=== PATIENT | female | born 1945 | race Caucasian/White ===

== ENCOUNTER 2016-10-18 18:40 | Inpatient (IN) | payer MEDICARE ==
[~2016-10-18] VITALS: Ht 175.3 cm; Wt 77.5 kg
[2016-10-18 19:34] LABS: ASPARTATE AMINO TRANSFERASE 26 U/L (15-37); BLOOD UREA NITROGEN 17 mg/dL (7-18)
[2016-10-18 20:00] LABS: PATH.CAST-FLAG NOT PRESENT; SPERM-FLAG NOT PRESENT; SRC-FLAG NOT PRESENT; XTAL-FLAG NOT PRESENT; YLC-FLAG NOT PRESENT
[2016-10-18] MEDS ORDERED: OMNIPAQUE 350 MG/ML, 100ML BOTTLE ONE (20:46)
[2016-10-18] MEDS ORDERED: ONDANSETRON 2MG/ML, 2ML ONE (21:22)
[2016-10-18] MEDS ORDERED: MORPHINE SULFATE 4 MG/ML, 1ML ONE (21:22)
[2016-10-18] MEDS ORDERED: ONDANSETRON 2MG/ML, 2ML IVPush ONE (21:30)
[2016-10-18] MEDS ORDERED: MORPHINE SULFATE 4 MG/ML, 1ML IVPush PRN (21:30)
[2016-10-18] MEDS ORDERED: morphine SULFATE 10 MG/ML, 1ML IVPush PRN (23:00)
[2016-10-18] MEDS ORDERED: ONDANSETRON 2MG/ML, 2ML IVPush PRN (23:00)
[2016-10-18] MEDS: BISACODYL 10 MG SUPP PR SCH (23:00)
[2016-10-18] MEDS ORDERED: ACETAMINOPHEN 325 MG TABLET PO PRN (23:00)
[2016-10-18] MEDS: LOVASTATIN 40 MG TABLET PO SCH (23:00)
[2016-10-18] MEDS ORDERED: FLUO40CA2 PO (23:14)
[2016-10-18] MEDS ORDERED: CARV3.122 PO (23:14)
[2016-10-18] MEDS ORDERED: NIAC500T85 PO (23:14)
[2016-10-18] MEDS ORDERED: PROM25SU34 RC (23:14)
[2016-10-18] MEDS ORDERED: PANT40TA5 PO (23:14)
[2016-10-18] MEDS ORDERED: TELM40TA PO (23:14)
[2016-10-18] MEDS ORDERED: ONDA4TAB10 PO (23:14)
[2016-10-18] MEDS ORDERED: LOVA40TA2 PO (23:14)
[2016-10-18] MEDS ORDERED: ALEN70TA5 PO (23:14)
[2016-10-18] MEDS ORDERED: FOLIC ACID (23:15)
[2016-10-18] MEDS ORDERED: VITAMIN D (23:15)
[2016-10-18] MEDS ORDERED: POTASSIUM (23:15)
[2016-10-18] MEDS ORDERED: MULT-658 PO (23:15)
[2016-10-18] MEDS ORDERED: CALCIUM (23:15)
[2016-10-19] MEDS ORDERED: ENALAPRILAT 1.25 MG/ML, 2ML IV PRN
[2016-10-19] MEDS: HEPARIN 5,000 UNITS/ML, 1ML SQ SCH ×3 (00:22→17:33)
[2016-10-19 00:29] VITALS: BP 170/80
[2016-10-19] MEDS: SODIUM CHLORIDE 0.9% 1,000 ML IV SCH ×3 (01:03→17:34)
[2016-10-19 03:10] VITALS: BP 130/73
[2016-10-19 05:18] LABS: BLOOD UREA NITROGEN 16 mg/dL (7-18)
[2016-10-19 05:30] LABS: ASPARTATE AMINO TRANSFERASE 22 U/L (15-37)
[2016-10-19 08:05] VITALS: BP 122/65
[2016-10-19] MEDS: VALSARTAN 160 MG TABLET PO SCH (09:00)
[2016-10-19] MEDS: BISACODYL 10 MG SUPP PR SCH (09:00)
[2016-10-19] MEDS ORDERED: BISACODYL 10 MG SUPP PR PRN (10:00)
[2016-10-19 14:10] VITALS: BP 120/75
[2016-10-19 18:54] VITALS: BP 126/67
[2016-10-19] MEDS ORDERED: IBUPROFEN 200 MG TABLET PO PRN (22:00)
[2016-10-19] MEDS: LOVASTATIN 40 MG TABLET PO SCH (22:13)
[2016-10-20] MEDS: HEPARIN 5,000 UNITS/ML, 1ML SQ SCH ×2 (02:29→09:53)
[2016-10-20] MEDS: SODIUM CHLORIDE 0.9% 1,000 ML IV SCH (02:29)
[2016-10-20 02:31] VITALS: BP 126/78
[2016-10-20 05:54] LABS: BLOOD UREA NITROGEN 9 mg/dL (7-18)
[2016-10-20 07:01] VITALS: BP 150/86
[2016-10-20] MEDS: VALSARTAN 160 MG TABLET PO SCH (09:00)
== END 2016-10-20 12:03 | disposition home or self-care (01) | DRG 390 ==
LOC: ED 20:51 → EDIP 22:34 → 4NOR 23:30
PROVIDERS: ADMIT Internal Medicine; ATTEND Internal Medicine
DX: K56.60 Unspecified intestinal obstruction (principal); I10 Essential (primary) hypertension; E78.00 Pure hypercholesterolemia, unspecified; Z66 Do not resuscitate; E78.5 Hyperlipidemia, unspecified; M19.90 Unspecified osteoarthritis, unspecified site; M51.36 Other intervertebral disc degeneration, lumbar region; N28.1 Cyst of kidney, acquired; R19.7 Diarrhea, unspecified; R51 Headache; Z83.3 Family history of diabetes mellitus; Z82.49 Family history of ischemic heart disease and other diseases of the circulatory system
CPT/HCPCS: 36415; 74000; 74177; 80048; 80053; 81001; 83690; 85025; 87086; 87324; 89055; 93005; 96374; 96375; J1644; J2405; Q9967; J7030

== ENCOUNTER → 2017-08-30 | Outpatient (CLI) | payer MEDICARE ==
[~2017-08-30] MED LIST: ACID1TAB7 PO; ALEN70TA5 PO; AMOX1TAB64 PO; CALCIUM; CARV3.122 PO; FLUO40CA2 PO; FOLIC ACID; LOVA40TA2 PO; MULT-658 PO; NIAC500T85 PO; ONDA4TAB10 PO; PANT40TA5 PO; POTASSIUM; PROM25SU34 RC; TELM40TA PO; VITAMIN D
== END | disposition home or self-care (01) ==
LOC: CFH 09:43
PROVIDERS: ATTEND Internal Medicine
DX: Z12.31 Encounter for screening mammogram for malignant neoplasm of breast (principal); D24.1 Benign neoplasm of right breast
CPT/HCPCS: 77063; 77067

== ENCOUNTER → 2017-10-02 | Outpatient (CLI) | payer MEDICARE | END | disposition home or self-care (01) | LOC: STAR 09:20 | PROVIDERS: ATTEND Physician Assistant Medical | DX: I10 Essential (primary) hypertension (principal) | CPT/HCPCS: 93005 ==

== ENCOUNTER → 2017-12-09 | Outpatient (CLI) | payer MEDICARE | END | disposition home or self-care (01) | LOC: CFH 10:29 | PROVIDERS: ATTEND Internal Medicine | DX: M81.0 Age-related osteoporosis without current pathological fracture (principal) | CPT/HCPCS: 77080 ==

== ENCOUNTER 2019-09-20 20:55 | Emergency (ER) | payer MEDICARE ==
[~2019-09-20] VITALS: Ht 175.3 cm; Wt 90.6 kg
[~2019-09-20 20:55] MED LIST changes: -ALEN70TA5 PO; +ALEN70TA6 PO
--- NOTE | 2019-09-20 21:23 | NUR ---
PT TOOK CLONIDINE IN TRIAGE FROM HER OWN MEDICATION SUPPLY INSTRUCTED TO DO SO BY LARRY POLK
[2019-09-20 22:17] LABS: BASOPHILS # (AUTO) 0.09 x10^3/uL (0-0.1); BASOPHILS % (AUTO) 1 % (0-1); EOSINOPHILS # (AUTO) 0.47 x10^3/uL (0-0.4); EOSINOPHILS % (AUTO) 6 % (1-7); LYMPHOCYTES # (AUTO) 2.66 x10^3/uL (1-3.4); LYMPHOCYTES % (AUTO) 31 % (22-44); MD NO; MEAN CORPUSCULAR HGB CONC 33.8 g/dL (32.4-35.8); MEAN CORPUSCULAR VOLUME 85.8 fL (80-100); MEAN PLATELET VOLUME 6.9 fL (7.4-10.4); MONOCYTES # (AUTO) 0.67 x10^3/uL (0.2-0.8); MONOCYTES % (AUTO) 8 % (2-9); NEUTROPHILS # (AUTO) 4.65 x10^3/uL (1.8-6.8); NEUTROPHILS % (AUTO) 55 % (42-75); PLATELET COUNT 263 x10^3/uL (130-400); RED BLOOD COUNT 4.64 x10^6/uL (3.82-5.3); RED CELL DISTRIBUTION WIDTH 14.3 % (9.6-15.2)
[2019-09-20 22:27] LABS: ALBUMIN 3.2 g/dL (3.4-5.0); ANION GAP 6 mmol/L (5-15); CHLORIDE 110 mmol/L (98-107)
[2019-09-20 22:32] LABS: ALANINE AMINOTRANSFERASE 30 U/L (12-78); ALKALINE PHOSPHATASE 87 U/L (45-117); BILIRUBIN,TOTAL 0.7 mg/dL (0.2-1.0); CREATININE 1.12 mg/dL (0.55-1.02); TOTAL PROTEIN 8.4 g/dL (6.4-8.2); TROPONIN I < 0.015 ng/mL (0.000-0.045)
--- NOTE | 2019-09-20 22:52 | NUR ---
PT AMBULATORY TO ROOM FROM LOBBY
--- NOTE | 2019-09-20 22:56 | NUR ---
PT RESTING IN BED NO COMPLAINTS
[2019-09-21] MEDS ORDERED: AZITHROMYCIN 500 MG TABLET ONE (00:06)
[2019-09-21 00:09] VITALS: BP 154/74
--- NOTE | 2019-09-21 00:09 | NUR ---
PT MEDICATED PER EMAR. 5 RIGHTS ADDRESSED
[2019-09-21] MEDS ORDERED: AZITHROMYCIN 500 MG TABLET PO ONE (00:30)
--- NOTE | 2019-09-21 00:41 | NUR ---
Patient/Caregiver given discharge instructions and they have confirmed that they understand the instructions. Patient ambulatory with steady gait.
== END 2019-09-21 00:43 | disposition home or self-care (01) ==
LOC: ED 09-21 00:01
DX: J15.9 Unspecified bacterial pneumonia (principal); R05 Cough; R07.9 Chest pain, unspecified; R94.31 Abnormal electrocardiogram [ECG] [EKG]; I10 Essential (primary) hypertension; E78.00 Pure hypercholesterolemia, unspecified
CPT/HCPCS: 36415; 71045; 80053; 83880; 84484; 85025; 93005; 99285

== ENCOUNTER 2019-09-28 10:22 | Emergency (ER) | payer MEDICARE ==
[~2019-09-28] VITALS: Ht 175.3 cm; Wt 90.5 kg
[2019-09-28] MEDS ORDERED: CARV6.252 PO (10:57)
[2019-09-28] MEDS ORDERED: LOSA100T14 PO (10:57)
[2019-09-28] MEDS ORDERED: AMLO5TAB10 PO (10:57)
[2019-09-28] MEDS ORDERED: ATOR20TA86 PO (10:57)
[2019-09-28] MEDS ORDERED: AZIT250T89 PO (10:57)
--- NOTE | 2019-09-28 11:03 | NUR ---
PT A&XO4, RESP EVEN & UNLABORED, SPEECH CLEAR, SKIN WNL. PT STATES SHE'S HERE FOR ELEVATED BP. WAS GOING TO START NUTRI-SYSTEM AND DECIDED TO START MONITORING HER BP. TAKES BP TID. STATES TID BECAUSE SHE'S SCARED OF HAVING A STROKE. NO PERSONAL OR FAMILY HX OF STROKE. HAS PCP APPOINTMENT THIS COMING SATURDAY
[2019-09-28 11:14] VITALS: BP 113/66
[2019-09-28] MEDS ORDERED: LIDOCAINE-MPF 1%, 5ML ONE (11:14)
[2019-09-28] MEDS ORDERED: PROBIOTIC (11:21)
[2019-09-28] MEDS ORDERED: NORT10CA PO (11:21)
[2019-09-28] MEDS ORDERED: MULTIVITAMIN (11:21)
[2019-09-28] MEDS ORDERED: CINNAMON (11:21)
[2019-09-28] MEDS ORDERED: ASPI-650 PO (11:21)
[2019-09-28] MEDS ORDERED: VITAMIN B-12 (11:21)
[2019-09-28] MEDS ORDERED: CLONIDINE (11:22)
== END 2019-09-28 12:23 | disposition home or self-care (01) ==
LOC: ED 11:57
DX: I10 Essential (primary) hypertension (principal); E78.00 Pure hypercholesterolemia, unspecified
CPT/HCPCS: 99283

== ENCOUNTER → 2019-10-02 | Outpatient (CLI) | payer MEDICARE ==
[~2019-10-02] MED LIST changes: +AMLO5TAB10 PO; +ASPI-650 PO; +ATOR20TA86 PO; +AZIT250T89 PO; +CARV6.252 PO; +CINNAMON; +CLONIDINE; +LOSA100T14 PO; +MULTIVITAMIN; +NORT10CA PO; +PROBIOTIC; +VITAMIN B-12
== END | disposition home or self-care (01) ==
LOC: ROC 10:05
PROVIDERS: ATTEND Internal Medicine
DX: R91.8 Other nonspecific abnormal finding of lung field (principal); J98.4 Other disorders of lung
CPT/HCPCS: 71046

== ENCOUNTER 2019-12-14 11:37 | Outpatient (CLI) | payer MEDICARE ==
[~2019-12-14 11:37] MED LIST changes: -PANT40TA5 PO; +PANT40TA6 PO
== END 2019-12-14 23:59 | disposition home or self-care (01) ==
LOC: CFH 11:37
PROVIDERS: ATTEND Internal Medicine
DX: M81.0 Age-related osteoporosis without current pathological fracture (principal)
CPT/HCPCS: 77080

== ENCOUNTER 2020-04-04 16:32 | Emergency (ER) | payer MEDICARE ==
[~2020-04-04] VITALS: Ht 175.3 cm; Wt 91.3 kg
[~2020-04-04 16:32] MED LIST changes: -ALEN70TA6 PO; +ALEN70TA77 PO; +AMLO-210 PO; -AMLO5TAB10 PO
[2020-04-04 16:35] VITALS: BP 125/58
[2020-04-04 17:27] LABS: BASOPHILS % (AUTO) 1 % (0-1); EOSINOPHILS % (AUTO) 4 % (1-7); LYMPHOCYTES % (AUTO) 20 % (22-44); MEAN CORPUSCULAR HEMOGLOBIN 28.5 pg (27.0-34.8); MEAN CORPUSCULAR HGB CONC 33.9 g/dL (32.4-35.8); MEAN PLATELET VOLUME 7.1 fL (7.4-10.4); MONOCYTES % (AUTO) 7 % (2-9); NEUTROPHILS % (AUTO) 68 % (42-75); PLATELET COUNT 287 x10^3/uL (130-400); RED BLOOD COUNT 4.69 x10^6/uL (3.82-5.3); RED CELL DISTRIBUTION WIDTH 13.7 % (9.6-15.2)
[2020-04-04 17:33] LABS: ALBUMIN 3.6 g/dL (3.4-5.0); ANION GAP 8 mmol/L (5-15); CALCIUM 9.6 mg/dL (8.5-10.1); CHLORIDE 106 mmol/L (98-107); CREATININE 1.58 mg/dL (0.55-1.02)
[2020-04-04 17:36] LABS: MD NO
[2020-04-04] MEDS ORDERED: OMNIPAQUE 350 MG/ML, 100ML BOTTLE ONE (18:27)
--- NOTE | 2020-04-04 18:42 | NUR ---
BEDSIDE REPORT RECEIVED FROM ELIAS RN, PT CARE TRANSFERRED AT THIS TIME. NAD, RESTING ON GURNEY, APPEARS COMFORTABLE, BED IN LOWEST, CALL LIGHT ON LAP, WCTM.
--- NOTE | 2020-04-04 19:23 | NUR ---
Patient given discharge instructions and they have confirmed that they understand the instructions. Patient ambulatory with steady gait. nad, denies additional questions or needs at this time, reports she will follow up. no personal belongings left in room at time of dc.
== END 2020-04-04 19:25 | disposition home or self-care (01) ==
LOC: ED 19:19
DX: K57.31 Diverticulosis of large intestine without perforation or abscess with bleeding (principal); K92.1 Melena; I10 Essential (primary) hypertension; E78.00 Pure hypercholesterolemia, unspecified; Z87.891 Personal history of nicotine dependence
CPT/HCPCS: 36415; 74177; 80048; 82040; 85025; 99285; Q9967

== ENCOUNTER 2020-10-22 14:09 | Inpatient (IN) | payer MEDICARE ==
[~2020-10-22] VITALS: Ht 175.3 cm; Wt 89.2 kg
[~2020-10-22 14:09] MED LIST changes: +ASPI-1026 PO; -ASPI-650 PO
[2020-10-22] MEDS ORDERED: SODIUM CHLORIDE FLUSH 10ML SYR IVF ONE (14:30)
--- NOTE | 2020-10-22 14:54 | NUR ---
pt presents to ED with c/o dry cough x 2 months, weight loss 8 lbs over 2 weeks, and sob starting 3 days ago. pt denies n/v/d, denies fever, denies sore throat. pt is covid vaccinated, denies travel or sick contacts. pt is a&ox4, resps even and unlabored. nsr on secured entrance monitor with no ectopy. PIV placed, blood cx drawn x1 by RN and x 1 by lab. call light in reach. warm blanket provided. awaiting lab/xr results and dispo.
[2020-10-22 15:05] LABS: BASOPHILS % (AUTO) 1 % (0-1); EOSINOPHILS % (AUTO) 3 % (1-7); LYMPHOCYTES % (AUTO) 18 % (22-44); MEAN CORPUSCULAR HEMOGLOBIN 28.6 pg (27.0-34.8); MEAN CORPUSCULAR HGB CONC 34.1 g/dL (32.4-35.8); MONOCYTES % (AUTO) 5 % (2-9); NEUTROPHILS % (AUTO) 73 % (42-75); PLATELET COUNT 289 x10^3/uL (130-400); RED BLOOD COUNT 4.75 x10^6/uL (3.82-5.3); RED CELL DISTRIBUTION WIDTH 14.8 % (9.6-15.2)
--- NOTE | 2020-10-22 15:08 | NUR ---
RECEIVED REPORT FROM MARY KATE JOY, TRANSFER OF CARE.
--- NOTE | 2020-10-22 15:11 | NUR ---
REPORT GIVEN TO BENITA RAHMAN WHO IS ASSUMING CARE.
[2020-10-22 15:16] LABS: ALANINE AMINOTRANSFERASE 23 U/L (12-78); ALBUMIN 2.9 g/dL (3.4-5.0); ANION GAP 6 mmol/L (5-15); CALCIUM 9.4 mg/dL (8.5-10.1); CHLORIDE 110 mmol/L (98-107); CREATININE 1.29 mg/dL (0.55-1.02)
[2020-10-22 15:20] LABS: ALKALINE PHOSPHATASE 88 U/L (45-117); BILIRUBIN,TOTAL 0.6 mg/dL (0.2-1.0); TOTAL PROTEIN 8.9 g/dL (6.4-8.2); TROPONIN I < 0.015 ng/mL (0.000-0.045)
--- NOTE | 2020-10-22 15:42 | NUR ---
sp02 on room air is 89%
[2020-10-22] MEDS ORDERED: SODIUM CHLORIDE FLUSH 10ML SYR IVF PRN (16:30)
[2020-10-22] MEDS ORDERED: ONDA4TAB7 PO (16:56)
[2020-10-22] MEDS ORDERED: IRBE300T8 PO (16:56)
[2020-10-22] MEDS ORDERED: LABETALOL 5MG/ML, 20ML IVPush PRN (17:00)
[2020-10-22] MEDS ORDERED: ACETAMINOPHEN 325 MG TABLET PO PRN (17:00)
[2020-10-22] MEDS ORDERED: ONDANSETRON 2MG/ML, 2ML IVPush PRN (17:00)
[2020-10-22] MEDS ORDERED: ONDANSETRON ODT 4 MG PO PRN (17:00)
[2020-10-22] MEDS: LACTATED RINGERS 1,000 ML IV SCH (17:00)
--- NOTE | 2020-10-22 17:22 | NUR ---
Patient is resting comfortably in bed. Bed in lowest, rails engaged, call light on lap. Vital Signs within normal limits. WCTM.
--- NOTE | 2020-10-22 17:27 | NUR ---
GAVE REPORT TO FLOOR RN THAT TOOK REPORT FOR NIDHI JOY.
[2020-10-22 18:04] VITALS: BP 138/83
[2020-10-22] MEDS: ENOXAPARIN 40 MG/0.4 ML SQ SCH (18:08)
[2020-10-22] MEDS: ASPIRIN 325 MG TABLET EC PO SCH (20:22)
[2020-10-22] MEDS: NORTRIPTYLINE 10 MG CAPSULE PO SCH (20:22)
[2020-10-22] MEDS: NIACIN 500 MG TABLET.ER PO SCH (21:38)
[2020-10-23 02:33] VITALS: BP 113/67
[2020-10-23 05:33] LABS: BASOPHILS % (AUTO) 1 % (0-1); EOSINOPHILS % (AUTO) 4 % (1-7); LYMPHOCYTES % (AUTO) 26 % (22-44); MEAN CORPUSCULAR HEMOGLOBIN 28.7 pg (27.0-34.8); MEAN CORPUSCULAR HGB CONC 34.3 g/dL (32.4-35.8); MEAN PLATELET VOLUME 7.3 fL (7.4-10.4); MONOCYTES % (AUTO) 7 % (2-9); NEUTROPHILS % (AUTO) 64 % (42-75); PLATELET COUNT 233 x10^3/uL (130-400); RED BLOOD COUNT 4.33 x10^6/uL (3.82-5.3); RED CELL DISTRIBUTION WIDTH 14.5 % (9.6-15.2)
[2020-10-23 05:39] LABS: ANION GAP 4 mmol/L (5-15); CHLORIDE 111 mmol/L (98-107)
[2020-10-23 07:07] VITALS: BP 121/74
[2020-10-23] MEDS: AMLODIPINE 10 MG TAB PO SCH (09:23)
[2020-10-23] MEDS: IRBESARTAN 300 MG TABLET PO SCH (09:23)
[2020-10-23] MEDS: MULTIVITAMIN 1 TABLET PO SCH (09:23)
[2020-10-23] MEDS: FLUOXETINE HCL 20 MG CAPSULE PO SCH (09:24)
[2020-10-23] MEDS: PANTOPRAZOLE 40MG TABLET PO SCH (09:24)
[2020-10-23] MEDS: LACTATED RINGERS 1,000 ML IV SCH ×2 (09:25→20:19)
[2020-10-23] MEDS: CEFTRIAXONE 2 GM in DEXTROSE 5% 50 ML IVPB SCH (11:53)
[2020-10-23] MEDS: DOXYCYCLINE 100 MG in DEXTROSE 5% 250 ML IV SCH (13:48)
[2020-10-23 14:03] VITALS: BP 127/73
[2020-10-23] MEDS: ENOXAPARIN 40 MG/0.4 ML SQ SCH (17:24)
[2020-10-23] MEDS: ASPIRIN 325 MG TABLET EC PO SCH (20:18)
[2020-10-23] MEDS: NORTRIPTYLINE 10 MG CAPSULE PO SCH (20:18)
[2020-10-23 20:28] VITALS: BP 149/84
[2020-10-23] MEDS ORDERED: ATORVASTATIN 20 MG TABLET PO SCH (21:00)
[2020-10-23] MEDS: NIACIN 500 MG TABLET.ER PO SCH (21:21)
[2020-10-24] MEDS: DOXYCYCLINE 100 MG in DEXTROSE 5% 250 ML IV SCH ×3 (01:45→14:25)
[2020-10-24 02:05] VITALS: BP 110/70
[2020-10-24 06:09] LABS: BASOPHILS % (AUTO) 1 % (0-1); EOSINOPHILS % (AUTO) 5 % (1-7); LYMPHOCYTES % (AUTO) 30 % (22-44); MEAN CORPUSCULAR HEMOGLOBIN 28.7 pg (27.0-34.8); MEAN CORPUSCULAR HGB CONC 34.3 g/dL (32.4-35.8); MONOCYTES % (AUTO) 8 % (2-9); NEUTROPHILS % (AUTO) 57 % (42-75); PLATELET COUNT 226 x10^3/uL (130-400); RED BLOOD COUNT 4.27 x10^6/uL (3.82-5.3); RED CELL DISTRIBUTION WIDTH 14.6 % (9.6-15.2)
[2020-10-24 06:22] LABS: ANION GAP 5 mmol/L (5-15); CALCIUM 9.1 mg/dL (8.5-10.1); CHLORIDE 109 mmol/L (98-107)
[2020-10-24 06:25] LABS: CREATININE 0.97 mg/dL (0.55-1.02)
[2020-10-24 08:20] VITALS: BP 116/76
[2020-10-24] MEDS: PANTOPRAZOLE 40MG TABLET PO SCH (08:27)
[2020-10-24] MEDS: IRBESARTAN 300 MG TABLET PO SCH (08:28)
[2020-10-24] MEDS: MULTIVITAMIN 1 TABLET PO SCH (08:28)
[2020-10-24] MEDS: AMLODIPINE 10 MG TAB PO SCH (08:28)
[2020-10-24] MEDS: FLUOXETINE HCL 20 MG CAPSULE PO SCH (08:28)
[2020-10-24] MEDS: CEFTRIAXONE 2 GM in DEXTROSE 5% 50 ML IVPB SCH (11:33)
[2020-10-24] MEDS ORDERED: CEFD300C37 PO (15:43)
[2020-10-24] MEDS ORDERED: DOXY100T PO (15:43)
[2020-10-24 16:56] VITALS: BP 125/85
[2020-10-24] MEDS: ENOXAPARIN 40 MG/0.4 ML SQ SCH (17:00)
== END 2020-10-24 17:43 | disposition home or self-care (01) | DRG 193 ==
LOC: ED 14:25 → EDIP 16:19 → 3N 17:42
PROVIDERS: ADMIT Family Medicine; ATTEND Family Medicine
DX: J18.9 Pneumonia, unspecified organism (principal); J96.01 Acute respiratory failure with hypoxia; E78.00 Pure hypercholesterolemia, unspecified; E78.5 Hyperlipidemia, unspecified; I10 Essential (primary) hypertension; Z66 Do not resuscitate; K21.9 Gastro-esophageal reflux disease without esophagitis; Z20.822 Contact with and (suspected) exposure to COVID-19; Z87.891 Personal history of nicotine dependence
CPT/HCPCS: 36415; 71045; 80048; 80053; 83605; 83735; 83880; 84145; 84484; 85025; 85379; 87040; 93005; G0378; J0696; J1650; J7060; U0005; J7120; U0003

== ENCOUNTER 2020-11-08 15:30 | Emergency (ER) | payer MEDICARE ==
[~2020-11-08] VITALS: Ht 175.3 cm; Wt 85.0 kg
[~2020-11-08 15:30] MED LIST changes: +ATORVASTATIN 20 MG TABLET PO ONE; +CEFD300C37 PO; +DOXY100T PO; +IRBE300T8 PO; +ONDA4TAB7 PO
--- NOTE | 2020-11-08 15:43 | NUR ---
THIS IS A 74 YEAR OLD FEMALE WHO WAS BIB AMBULANCE DUE TO SOB, SAT 74% RA IN MD OFFICE. PT HAS A HX OF PNA, DC FROM [facility] ON 10/24/2020. PT HAS A HX HTN, BENING MASSES IN BREAST, BOWEL OBSTRUCTION, GERD, DIVERTICULITIS, DEPRESSION. PLACED PATIENT ON OXYGEN AT 4LNC SAT 95-99% AND CYCLE VS.
[2020-11-08 16:35] LABS: BASOPHILS % (AUTO) 1 % (0-1); EOSINOPHILS % (AUTO) 6 % (1-7); LYMPHOCYTES % (AUTO) 32 % (22-44); MEAN CORPUSCULAR HEMOGLOBIN 28.3 pg (27.0-34.8); MEAN CORPUSCULAR HGB CONC 33.5 g/dL (32.4-35.8); MONOCYTES % (AUTO) 8 % (2-9); NEUTROPHILS % (AUTO) 53 % (42-75); PLATELET COUNT 273 x10^3/uL (130-400); RED BLOOD COUNT 4.99 x10^6/uL (3.82-5.3); RED CELL DISTRIBUTION WIDTH 14.8 % (9.6-15.2)
[2020-11-08 16:46] LABS: ALANINE AMINOTRANSFERASE 22 U/L (12-78); ALBUMIN 2.8 g/dL (3.4-5.0); ANION GAP 8 mmol/L (5-15); CALCIUM 9.8 mg/dL (8.5-10.1); CHLORIDE 107 mmol/L (98-107); CREATININE 1.41 mg/dL (0.55-1.02)
[2020-11-08 16:51] LABS: ALKALINE PHOSPHATASE 92 U/L (45-117); BILIRUBIN,TOTAL 0.8 mg/dL (0.2-1.0); TOTAL PROTEIN 9.6 g/dL (6.4-8.2); TROPONIN I < 0.015 ng/mL (0.000-0.045)
--- NOTE | 2020-11-08 18:56 | NUR ---
REPORT TO EUGENIO JOY, PLAN OF CARE DISCUSSED
--- NOTE | 2020-11-08 19:37 | NUR ---
TP RN: [facility] AFTER HOURS CONTACTED FOR O2 DELIVERY; [employer] ROBOTICIST ATHLETIC AGENT BEING CALLED BY THEM.
[2020-11-08] MEDS ORDERED: IRBESARTAN 300 MG TABLET PO ONE (21:38)
[2020-11-08] MEDS ORDERED: NORTRIPTYLINE 10 MG CAPSULE PO ONE (21:39)
[2020-11-08] MEDS ORDERED: AMLODIPINE 10 MG TAB PO ONE (21:39)
[2020-11-08] MEDS ORDERED: FLUOXETINE HCL 20 MG CAPSULE PO ONE (21:41)
[2020-11-08] MEDS ORDERED: FLUOXETINE HCL 20 MG CAPSULE ONE (21:55)
[2020-11-08] MEDS ORDERED: ATORVASTATIN 20 MG TABLET ONE (21:56)
[2020-11-08] MEDS ORDERED: AMLODIPINE 10 MG TAB ONE (21:56)
--- NOTE | 2020-11-08 21:59 | NUR ---
TP RN: AT APROXIMATLY 2030 [facility] CALLED BACK TO INFORM ED STAFF THAT THEY DON'T HAVE ANYONE AVAILABLE TO SET UP O2 FOR PT. OVERNIGHT. THEY STATE THEY WON'T BE ABLE TO SET UP HOME O2 FOR PT. UNTIL AFTER 0830 IN THE AM WHEN THEY HAVE STAFF AVAILABLE. WE ONLY HAVE ONE O2 TANK IN THE ED TO SEND WITH PT. AND PER [facility] THAT WILL ONLY LAST 4 HOURS. THEREFORE, PT. WILL REMAIN IN ED UNTIL AT LEAST 0500 WHEN WE CAN SENT PT. WITH ONE TANK AND INSTRUCITONS TO CALL [facility] 0830 WHEN THEY OPEN.
--- NOTE | 2020-11-09 03:25 | NUR ---
Pt resting comfortably at this time, provided with extra pillows and blankets. On oxygen, sleeping. Denies further needs or interventions.
[2020-11-09] MEDS ORDERED: ASPIRIN 325 MG TABLET EC PO ONE (06:00)
[2020-11-09] MEDS ORDERED: PANTOPRAZOLE 40MG TABLET PO ONE (06:00)
[2020-11-09] MEDS ORDERED: NIACIN 500 MG TABLET.ER PO ONE (06:00)
--- NOTE | 2020-11-09 06:36 | NUR ---
Pt sleeping at this time, pending discharge for home oxygen set up. Pt denies further needs.
--- NOTE | 2020-11-09 06:48 | NUR ---
Report to BENITA Schafer no further questions at this time.
--- NOTE | 2020-11-09 07:04 | NUR ---
Steady ambulation to bathroom, back resting in bed, call light in reach.
--- NOTE | 2020-11-09 08:55 | NUR ---
THROUGHPUT RN NOTE: [facility] OXYGEN CALLED, [facility] TRAINING INSTRUCTOR CONFIRMED THAT ORDER WAS RECEIVED. TRAINING INSTRUCTOR STATES THAT THEY ARE UNABLE TO DELIVER OXYGEN TO PT'S RESIDENCE, BUT ABLE TO DELIVER TO HOSPITAL IN APPROX ONE HOUR FROM NOW. LEASE PICKER NOTIFIED.
[2020-11-09 09:24] VITALS: BP 132/72
--- NOTE | 2020-11-09 11:03 | NUR ---
[facility] at bedside with home o2
== END 2020-11-09 11:28 | disposition home or self-care (01) ==
LOC: ED 20:56 → EDIP 21:48 → UNDOADMOB 21:48
DX: R06.00 Dyspnea, unspecified (principal); R09.02 Hypoxemia; R94.31 Abnormal electrocardiogram [ECG] [EKG]; I10 Essential (primary) hypertension; E78.00 Pure hypercholesterolemia, unspecified; Z87.891 Personal history of nicotine dependence
CPT/HCPCS: 36415; 71045; 80053; 83605; 83880; 84145; 84484; 85025; 85379; 87040; 93005; 99285